=== PATIENT | female | born 1985 | race Caucasian/White ===

== ENCOUNTER → 2018-08-11 | Outpatient (CLI) | payer OTHER ==
--- NOTE | 2018-08-11 14:56 | CT ---
EXAMINATION TYPE: CT sinus wo con DATE OF EXAM: 08/11/2018 COMPARISON: None HISTORY: Chronic sinusitis CT DLP: 630.70 mGycm CONTRAST: None The paranasal sinuses are examined in the axial plane at 2 mm thick sections. Reconstructed images i n the coronal plane were obtained. Nasal bones appear intact. Maxillary spine as not visualized. Retention cysts are within the dependent maxillary sinuses bilaterally. The ethmoid air cells are cl ear. The sphenoid sinuses are clear. The frontal sinuses are clear. The septum is evaluated. There is septal deviation to the left. The ostiomeatal units are patent. IMPRESSIONS: 1. Small retention cysts bilateral maxillary sinuses.
== END | disposition home or self-care (01) ==
LOC: RADCTMAIN 13:38
PROVIDERS: ATTEND Otolaryngology
DX: J34.1 Cyst and mucocele of nose and nasal sinus (principal)
CPT/HCPCS: 70486

== ENCOUNTER 2022-10-30 00:09 | Emergency (ER) | payer OTHER, BC ==
[2022-10-30 00:20] VITALS: RESP 20; TEMP 97.8
[2022-10-30] MEDS ORDERED: methylPREDNISolone SOD SUCCI 125 MG/2 ML VIAL IM ONE (01:01)
--- NOTE | 2022-10-30 01:02 | ED ---
Skin/Abscess/FB HPI - General Chief complaint: Skin/Abscess/Foreign Body Stated complaint: Blisters on body Time Seen by Provider: 10/30/22 01:02 Source: patient Mode of arrival: ambulatory Limitations: no limitations - History of Present Illness Initial comments: Patient is a pleasant 37-year-old female presenting to the emergency room for further evaluation of rash which she reports is worsening despite multiple visits to urgent care or current oral antibiotics and a dose of oral steroids not currently on steroids from urgent care. She is currently taking clindamycin and was previously given Keflex both of which she is taking as prescribed. She has contacted and scheduled appointment with dermatology but reports symptoms have become severe and has made it difficult for her to work given location of lesions of her lower extremities. She reports that the rash begins as a pimple- like lesion that eventually blisters and bubbles with surrounding redness and then scabs over. She states that she believes that the lesions began her upper extremities but now present on her lower extremities as well with her most severe lesion to her bilateral thighs. She denies any previous rashes like this. She denies any known irritant. She does report that the lesions are itchy and painful in nature. She denies any new skin products, medications or personal hygiene products. She denies any systemic complaints including any chest pain, shortness of breath, difficulty in breathing, nausea, vomiting, fevers or chills. She has no significant past medical history and does not take any medications on a regular basis. - Related Data Home Medications Medication Instructions Recorded Confirmed [id number] Acid 1 each PO DAILY 10/22/13 10/22/13 [-U Capsule] Previous Rx's Medication Instructions Recorded predniSONE [Deltasone] 20 mg PO DIRECTED #16 tab 10/30/22 Allergies Allergy/AdvReac Type Severity Reaction Status Date / Time No Known Allergies Allergy Verified 10/30/22 00:20 Review of Systems ROS Statement: Those systems with pertinent positive or pertinent negative responses have been documented in the HPI. ROS Other: All systems not noted in ROS Statement are negative. Past Medical History Past Medical History: No Reported History Additional Past Medical History / Comment(s): some history of svt at age 6 and a couple of months ago- all test are benign History of Any Multi-Drug Resistant Organisms: None Reported Past Surgical History: No Surgical Hx Reported Past Anesthesia/Blood Transfusion Reactions: No Reported Reaction Past Psychological History: No Psychological Hx Reported Past Alcohol Use History: None Reported Past Drug Use History: None Reported - Past Family History Mother Family Medical History: Diabetes Mellitus General Exam Limitations: no limitations General appearance: alert, in no apparent distress Head exam: Present: atraumatic, normocephalic, normal inspection Eye exam: Present: normal appearance, PERRL, EOMI. Absent: scleral icterus, conjunctival injection, periorbital swelling ENT exam: Present: normal exam, mucous membranes moist Neck exam: Present: normal inspection, full ROM Respiratory exam: Absent: respiratory distress, accessory muscle use Cardiovascular Exam: Present: regular rate GI/Abdominal exam: Present: soft. Absent: distended, tenderness, guarding, rebound, rigid Extremities exam: Present: other (Bilateral upper extremities and lower extremities with scattered bullae rash with surrounding erythema ) Back exam: Present: normal inspection Neurological exam: Present: alert, oriented X3, CN II-XII intact Psychiatric exam: Present: normal affect, normal mood Skin exam: Present: rash (As above) Course Vital Signs 10/30/22 10/30/22 00:14 03:02 Temperature 97.8 F Pulse Rate 78 62 Respiratory 20 20 Rate Blood Pressure 117/77 127/79 O2 Sat by Pulse 99 98 Oximetry Medical Decision Making - Medical Decision Making Was pt. sent in by a medical professional or institution ([facility], [facility], urgent care, hospital, or [facility]...) When possible be specific @ -No Did you speak to anyone other than the patient for history (EMS, parent, family, police, friend...)? What history was obtained from this source @ -No Did you review nursing and triage notes (agree or disagree)? Why? @ -I reviewed and agree with nursing and triage notes Were old charts reviewed (outside hosp., previous admission, EMS record, old EKG, old radiological studies, urgent care reports/EKG's, [facility] records)? Report findings @ -No old charts were reviewed Differential Diagnosis (chest pain, altered mental status, abdominal pain women, abdominal pain men, vaginal bleeding, weakness, fever, dyspnea, syncope, headache, dizziness, GI bleed, back pain, seizure, CVA, palpatations, mental health, musculoskeletal)? @ -Differential Rash: Contact dermatitis, allergic reaction, petechial rash, herpes zoster, urticaria, MRSA infection, cellulitis, erythema multiforme a, tinea corpus, impetigo, and, insect bite, atopic dermatitis, this is not meant to be an all-inclusive list. EKG interpreted by me (3pts min.). @ -None done X-rays interpreted by me (1pt min.). @ -None done CT interpreted by me (1pt min.). @ -None done U/S interpreted by me (1pt. min.). @ -None done What testing was considered but not performed or refused? (CT, X-rays, U/S, labs)? Why? @ -None What meds were considered but not given or refused? Why? @ -None Did you discuss the management of the patient with other professionals (professionals i.e. , PA, [facility], lab, RT, psych nurse, foster care social worker, credit intern, teacher, low altitude air defense officer, immigration case worker)? Give summary @ -No Was smoking cessation discussed for >3mins.? @ -No Was critical care preformed (if so, how long)? @ -No Were there social determinants of health that impacted care today? How? (Homelessness, low income, unemployed, alcoholism, drug addiction, transportation, low edu. Level, literacy, decrease access to med. care, senior care, rehab)? @ -No Was there de-escalation of care discussed even if they declined (Discuss DNR or withdrawal of care, Hospice)? DNR status @ -No What co-morbidities impacted this encounter? (DM, HTN, Smoking, COPD, CAD, Cancer, CVA, ARF, Chemo, Hep., AIDS, mental health diagnosis, sleep apnea, morbid obesity)? @ -None Was patient admitted / discharged? Hospital course, mention meds given and rout e, prescriptions, significant lab abnormalities, going to OR and other pertinent info. @ -37-year-old female presenting to the emergency room for further evaluation of rash which she reports is worsening despite multiple visits to urgent care or current oral antibiotics and a dose of oral steroids not currently on steroids from urgent care. Will obtain laboratory studies of CBC and CMP to evaluate for leukocytosis and allergic response along with ESR and CRP. No indication for diagnostic imaging. Will give a dose of Solu-Medrol given dissemination of rash and await laboratory studies. CBC unremarkable. CMP with slightly elevated BUN 19, creatinine normal. All electrolytes and liver function normal. ESR and CRP normal. Findings discussed with patient. No indication for further laboratory studies are any diagnostic imaging more medication administration at this time. Advised completion of previously prescribed clindamycin as prescribed and will place on burst and tap er steroid to treat bullous dermatitis. Encouraged follow-up with dermatology. Questions and concerns answered. Return parameters to the emergency room discussed. Will discharge home in stable condition with follow-up with primary care provider and dermatology on previously prescribed oral antibiotics along with oral steroids to treat bullous dermatitis. Undiagnosed new problem with uncertain prognosis? @ -No Drug Therapy requiring intensive monitoring for toxicity (Heparin, Nitro, Insulin, Cardizem)? @ -No Were any procedures done? @ -No Diagnosis/symptom? @ -Bullous dermatitis Acute, or Chronic, or Acute on Chronic? @ -Acute Uncomplicated (without systemic symptoms) or Complicated (systemic symptoms)? @ -Uncomplicated Side effects of treatment? @ -No Exacerbation, Progression, or Severe Exacerbation? @ -No Poses a threat to life or bodily function? How? (Chest pain, USA, SC, pneumonia, PE, COPD, DKA, ARF, appy, cholecystitis, CVA, Diverticulitis, Homicidal, S uicidal, threat to staff... and all critical care pts) @ -No Case discussed with Dr. Souza. - Lab Data Result diagrams: 10/30/22 01:03 10/30/22 01:03 Lab Results 10/30/22 10/30/22 Range/Units 01:03 01:03 WBC 7.8 (3.8-10.6) k/uL RBC 4.34 (3.80-5.40) m/uL Hgb 13.6 (11.4-16.0) gm/dL Hct 40.7 (34.0-46.0) % MCV 93.9 (80.0-100.0) fL MCH 31.2 (25.0-35.0) pg MCHC 33.3 (31.0-37.0) g/dL RDW 11.7 (11.5-15.5) % Plt Count 265 (150-450) k/uL MPV 8.0 Neutrophils % 35 % Lymphocytes % 48 % Monocytes % 5 % Eosinophils % 9 % Basophils % 1 % Neutrophils # 2.7 (1.3-7.7) k/uL Lymphocytes # 3.8 (1.0-4.8) k/uL Monocytes # 0.4 (0-1.0) k/uL Eosinophils # 0.7 (0-0.7) k/uL Basophils # 0.1 (0-0.2) k/uL ESR 2 (0-20) mm/hr Sodium 137 (137-145) mmol/L Potassium 3.6 (3.5-5.1) mmol/L Chloride 104 (98-107) mmol/L Carbon Dioxide 25 (22-30) mmol/L Anion Gap 8 mmol/L BUN 19 H (7-17) mg/dL Creatinine 0.58 (0.52-1.04) mg/dL Est GFR (CKD-EPI)AfAm >90 (>60 ml/min/1.73 sqM) Est GFR (CKD-EPI)NonAf >90 (>60 ml/min/1.73 sqM) Glucose 85 (74-99) mg/dL Calcium 9.4 (8.4-10.2) mg/dL Total Bilirubin 0.9 (0.2-1.3) mg/dL AST 31 (14-36) U/L ALT 21 (4-34) U/L Alkaline Phosphatase 48 (38-126) U/L C-Reactive Protein <0.5 (<1.0) mg/dL Total Protein 7.5 (6.3-8.2) g/dL Albumin 4.4 (3.5-5.0) g/dL Disposition Clinical Impression: Bullous dermatitis Disposition: HOME SELF-CARE Condition: Stable Instructions (If sedation given, give patient instructions): Dermatitis (ED) Additional Instructions: Complete course of clindamycin as previously prescribed by urgent care. Complete course of oral steroids as prescribed. May return to work if able to wear breathable cotton clothing otherwise recommend staying off work until cleared by dermatology. Please keep upcoming appointment with dermatology. Avoid sun exposure for itching of the skin. May utilize [id number]-[id number] hydrocortisone cream for itching as needed. Please return to the Emergency Department if symptoms worsen or any other concerns. Prescriptions: predniSONE [Deltasone] 20 mg PO DIRECTED #16 tab Is patient prescribed a controlled substance at d/c from ED?: No Referrals: Winter Gaines III, MD [Primary Care Provider] - 1-2 days Time of Disposition: 02:50
[2022-10-30 01:46] LABS: Basophils # (A) 0.1 k/uL (0-0.2); Basophils % (A) 1 %; Eosinophils # (A) 0.7 k/uL (0-0.7); Eosinophils % (A) 9 %; HCT 40.7 % (34.0-46.0); HGB 13.6 gm/dL (11.4-16.0); Lymphocytes # (A) 3.8 k/uL (1.0-4.8); Lymphocytes % (A) 48 %; MCH 31.2 pg (25.0-35.0); MCHC 33.3 g/dL (31.0-37.0); MCV 93.9 fL (80.0-100.0); Monocytes # (A) 0.4 k/uL (0-1.0); Monocytes % (A) 5 %; Neutrophils # (A) 2.7 k/uL (1.3-7.7); Neutrophils % (A) 35 %; Platelet Count 265 k/uL (150-450); RBC 4.34 m/uL (3.80-5.40); RDW 11.7 % (11.5-15.5); WBC 7.8 k/uL (3.8-10.6)
[2022-10-30 01:48] LABS: ALT 21 U/L (4-34); AST 31 U/L (14-36); African American GFR (CKD) >90 (>60 ml/min/1.73 sqM); Albumin 4.4 g/dL (3.5-5.0); Alkaline Phosphatase 48 U/L (38-126); Anion Gap 8 mmol/L; Blood Urea Nitrogen 19 mg/dL (7-17); C Reactive Protein <0.5 mg/dL (<1.0); Calcium 9.4 mg/dL (8.4-10.2); Carbon Dioxide 25 mmol/L (22-30); Chloride 104 mmol/L (98-107); Glucose 85 mg/dL (74-99); Non-African American GFR(CKD) >90 (>60 ml/min/1.73 sqM); Potassium 3.6 mmol/L (3.5-5.1); Sodium 137 mmol/L (137-145); Total Bilirubin 0.9 mg/dL (0.2-1.3); Total Protein 7.5 g/dL (6.3-8.2)
[2022-10-30 03:04] VITALS: BP 127/79; PULSE 62
[2022-10-30 03:53] LABS: Erythrocyte Sedimentation Rate 2 mm/hr (0-20)
== END 2022-10-30 03:04 | disposition home or self-care (01) ==
LOC: EC 00:09
DX: L13.9 Bullous disorder, unspecified (principal)
CPT/HCPCS: 36415; 80053; 85652; 85025; 86140; 99283; 96372; J2930

== ENCOUNTER → 2023-03-27 | Outpatient (CLI) | payer OTHER ==
--- NOTE | 2023-03-31 11:23 | MM ---
Reason for Exam: Screening (asymptomatic). Baseline mammogram. Patient History: Menarche at age 13. First Full-Term at age 25. Patient has history of breast feeding. Currently using Hormonal Contraceptives, starting at age 28. Paternal grandmother had breast cancer at or over age 50. Last menstrual period: 03/13/2023 Risk Values: Rut 5 year model risk: 0.4%. NCI Lifetime model risk: 11.2%. Prior Study Comparison: Patient's first Mammogram. Tissue Density: The breast tissue is extremely dense which could obscure a lesion on mammography. Findings: Analyzed By CAD. Pattern appears symmetrical. No suspicious groups of microcalcifications, spiculated or lobular masses, architectural distortion or other secondary signs of malignancy are mammographically apparent. Overall Assessment: Benign, BI-RAD 2 Management: Screening Mammogram of both breasts in 1 year. A negative mammogram report should not preclude additional follow up of suspicious palpable abnormalities. Patient should continue monthly self breast exam. A clinical breast exam by your physician is recommended on an annual basis and results should be correlated with mammographic findings. Electronically signed and approved by: Evangelista Velásquez D.O. Radiologis
== END | disposition home or self-care (01) ==
LOC: RADMAMWWP 13:35
PROVIDERS: ATTEND Obstetrics & Gynecology
DX: Z12.31 Encounter for screening mammogram for malignant neoplasm of breast (principal); Z80.3 Family history of malignant neoplasm of breast
CPT/HCPCS: 77063; 77067